=== PATIENT | male | born 1965 | race American Indian/Alaskan Native ===

== ENCOUNTER 2018-12-26 11:04 | Day surgery (SDC) | payer OTHER ==
[~2018-12-26 11:04] MED LIST: ANCEF/STERILE WATER 2 GM/20 ML IV NR
[2018-12-26] MEDS ORDERED: LACTATED RINGERS 1,000 ML IV SCH (11:09)
[2018-12-26] MEDS ORDERED: MORPHINE IV ONE (11:47)
[2018-12-26] MEDS ORDERED: SUBLIMAZE IV PRN (11:53)
[2018-12-26] MEDS ORDERED: ZOFRAN IV PRN (11:53)
--- NOTE | 2018-12-26 11:56 | Anesthesia Day of Surgery ---
Anesthesia Day of Surgery - Day of Surgery Patient Examined: Yes Patient H&P Reviewed: Yes Patient is NPO: Yes
--- NOTE | 2018-12-26 11:56 | Anesthesia Consultation ---
Anesthesia Consult and Med Hx Date of service: 12/26/18 - Airway Anesthetic Teeth Evaluation: Good, Dentures ROM Head & Neck: Adequate Mental/Hyoid Distance: Adequate Mallampati Class: Class I Intubation Access Assessment: Good - Pre-Operative Health Status ASA Pre-Surgery Classification: ASA2 Proposed Anesthetic Plan: General - Pulmonary Hx Smoking: No Hx Sleep Apnea: No (JUAN PRE SCREEN HIGH RISK) - Cardiovascular System Hx Hypertension: Yes (X 1 YR; Active-walks four miles) - Other Systems Hx Cancer: No
[2018-12-26] MEDS ORDERED: NEURONTIN PO NR (12:00)
[2018-12-26] MEDS: VERSED IV PRN ×2 (12:02→12:36)
[2018-12-26] MEDS ORDERED: DILAUDID ONE (13:04)
[2018-12-26] MEDS ORDERED: DIPRIVAN 10 MG/ML IV ONE (13:05)
[2018-12-26] MEDS ORDERED: WATER FOR IRRIG STERILE IR ONE ×2 (14:00→14:44)
[2018-12-26] MEDS ORDERED: XYLOCAINE MPF 2% ONE (14:23)
[2018-12-26] MEDS ORDERED: ZOFRAN ONE (14:24)
[2018-12-26] MEDS ORDERED: TORADOL ONE (14:24)
--- NOTE | 2018-12-26 14:33 | Short Stay Summary ---
Short Stay Documentation Date of service: 12/26/18 Narrative H&P: 53 yr old male with penile mass (glans/shaft)--1cm soft) - History Past Medical History: No medical history Past Surgical History: No surgical history Social history: - Allergies and Medications Current Medications: Allergies No Known Allergies Allergy (Verified 12/24/18 15:58) Home Medications Medication Instructions Recorded Confirmed Last Taken Type AtorvaSTATin [Lipitor] 10 mg PO QHS 12/24/18 12/26/18 12/25/18 History Olmesartan (Nf) [Benicar (Nf)] 40 mg PO QDAY 12/24/18 12/26/18 12/26/18 10:45 History Active Medications Cefazolin Sodium (Ancef/Sterile Water 2 Gm/20 Ml) 2 gm IV PREOP NR Stop: 12/26/18 23:59 Celecoxib (Celebrex) 200 mg PO PREOP NR Stop: 12/26/18 23:59 Last Admin: 12/26/18 11:55 Dose: 200 mg Documented by: Fentanyl (Sublimaze) 50 mcg IV Q5MIN PRN PRN Reason: Pain , Severe (7-10) Stop: 12/26/18 23:59 Gabapentin (Neurontin) 300 mg PO PREOP NR Stop: 12/26/18 23:59 Last Admin: 12/26/18 11:55 Dose: 300 mg Documented by: Lactated Ringer's (Lactated Ringers) 1,000 mls @ 75 mls/hr IV DIRECT ADILENE Last Admin: 12/26/18 12:00 Dose: 75 mls/hr Documented by: Midazolam HCl (Versed) 2 mg IV PREOP PRN PRN Reason: Anxiety Stop: 12/26/18 23:59 Last Admin: 12/26/18 12:36 Dose: 2 mg Documented by: Ondansetron HCl (Zofran) 4 mg IV ONCE PRN PRN Reason: Nausea And Vomiting Stop: 12/26/18 23:59 - Physical exam General appearance: no acute distress, well-nourished Integumentary: no rash, no growths HEENT: Atraumatic, PERRLA Lungs: Clear to auscultation Breasts: normal Heart: Regular rate, No murmurs Gastrointestinal: normal Male Genitourinary: penile edema Extremities: no ischemia, No edema Neurological: Normal gait - Brief post op/procedure progress note Date of procedure: 12/26/18 Pre-op diagnosis: penile mass Post-op diagnosis: same Procedure: cysto,rpg, excision of penile mass, revision circ Anesthesia: GETA Surgeon: BG GAYTAN Estimated blood loss: minimal Pathology: list (skin, mass) Specimen disposition: to lab Condition: stable - Hospital course Hospital course: yudithro & yareli on chart - Disposition Condition at discharge: Stable Disposition: DC-01 TO HOME OR SELFCARE Short Stay Discharge Plan Follow up with: KEISHA TRINIDAD MD [Primary Care Provider] - 7 Days
--- NOTE | 2018-12-26 15:01 | Fluoroscopy Report ---
Retrograde pyelogram: Penile mass. Bilateral injections were made into the distal ureters with good opacifications of the ureters and intrarenal collecting systems. No filling defects and no displacement identified. Impression: Unremarkable exam.
[2018-12-26] MEDS ORDERED: NORCO 5/325 PO PRN (16:08)
[2018-12-26 16:22] VITALS: BP 122/73
[2018-12-26] MEDS ORDERED: NORCO 5/325 ONE (16:23)
--- NOTE | 2018-12-26 19:05 | Operative Report ---
PREOPERATIVE DIAGNOSIS: Penile mass. POSTOPERATIVE DIAGNOSIS: Penile mass. PROCEDURES: Cystoscopy, bilateral retrograde pyelograms, excision of penile mass, and revision circumcision. SURGEON: Bertram Dale MD ANESTHESIA: General. ESTIMATED BLOOD LOSS: Minimal. FLUIDS: Crystalloid. COMPLICATIONS: No complications. INDICATIONS: This patient is a 53-year-old gentleman, seen in the office for a 1 cm mass at the junction of the glans penis and shaft on the left side, soft, feels like varsha, discussed options. The patient understands this may be a staged procedure. DESCRIPTION OF PROCEDURE: The patient was taken to the operative suite, placed in a supine position. After adequate general anesthesia, placed in a dorsal lithotomy position, prepped and draped in a sterile fashion. Pancystourethroscopy was performed with 22-Niuean Storz cystoscope. Urethra was normal. The integrity of the mucosa was intact. No ulceration could be appreciated in the urethra. Prostate nonobstructing. Bladder, no tumors or stones were noted. Bilateral retrograde pyelograms were obtained with an 8 Ni[place]an Lamoure catheter and 8 mL of contrast. No filling defects or obstruction. Next, using Bovie, the skin appeared as that there was shaft skin on the glans penis. An incision was made at the coronal ridge. Sharp dissection was taken down to this mass, it was dissected free, was yellow in consistency and varsha-like. Now, this is opened it. He had some redundant foreskin. The redundant skin was excised in a wedge-like closure of 2-0 chromic in interrupted fashion on the glans penis and the coronal ridge. There was some skin discoloration where the mass was located. Adequate hemostasis achieved. Xeroform gauze, Shane and Coban was placed. The patient tolerated the procedure, was extubated and taken to recovery room. He will go home on [employer] [place] and follow up in the office. JOB# [id number] MYNOR/MODESTO
== END 2018-12-26 11:05 | disposition home or self-care (01) ==
LOC: OR 11:04
PROVIDERS: ATTEND Urology
DX: N48.89 Other specified disorders of penis (principal); E78.00 Pure hypercholesterolemia, unspecified; I10 Essential (primary) hypertension; F41.9 Anxiety disorder, unspecified; Z79.899 Other long term (current) drug therapy
CPT/HCPCS: 11426; 52005; 54163; 74420; 88305; A4217; C1758; J0690; J1170; J1885; J2250; J2270; J2405; J2704; J3010; J7120; Q9967; 88307